=== PATIENT | female | born 1990 | race Caucasian/White ===

== ENCOUNTER 2016-10-05 11:54 | Emergency (ER) | payer OTHER ==
[2016-10-05 12:05] VITALS: BP 143/80; TEMP 97.3; O2SAT 100
--- NOTE | 2016-10-05 12:22 | ED.PDOC ---
History of Present Illness - General Chief Complaint: General Stated Complaint: flu like symp Time Seen by Provider: 10/05/16 12:17 Source: patient, RN notes reviewed, Vital Signs reviewed Exam Limitations: no limitations - History of Present Illness Initial Comments: stated had nasal congestion the last 2 days and this morning started having body aches feels having fever but temperature taken here afebrile. Timing/Duration: other - 2 days ago Improving Factors: nothing Worsening Factors: nothing Associated Symptoms: fever/chills, loss of appetite Allergies/Adverse Reactions: Allergies NO KNOWN ALLERGY Allergy (Verified 10/05/16 12:00) Home Medications: Ambulatory Orders Amoxicillin [Amoxil] 1,000 mg PO BID #30 cap 10/05/16 Oxymetazoline HCl [Afrin Nasal [place]] 1 spray NA BID PRN #1 spr 10/05/16 Phenylephrine-Chlorpheniramine [Cold Multi-Symptom Nightt 5-2-10-325 mg] 1 tab PO TID #30 tab 10/05/16 Review of Systems - Review of Systems Constitutional: States: see HPI EENTM: States: see HPI Respiratory: States: see HPI Cardiology: States: no symptoms reported Gastrointestinal/Abdominal: States: no symptoms reported Genitourinary: States: see HPI Musculoskeletal: States: no symptoms reported Skin: States: no symptoms reported Neurological: States: no symptoms reported Endocrine: States: no symptoms reported Past Medical History (General) - Patient Medical History Hx Seizures: No Hx Stroke: No Hx Dementia: No Hx Asthma: No Hx of COPD: No Hx Cardiac Disorders: No Hx Congestive Heart Failure: No Hx Pacemaker: No Hx Hypertension: Yes Hx Thyroid Disease: No Hx Diabetes: Yes Hx Gastroesophageal Reflux: No Hx Renal Disease: No Hx Cancer: No Hx of HIV: No Hx Hepatitis C: No Hx MRSA: No Surgical History: other - vaginal deliveries - Vaccination History Hx Tetanus, Diphtheria Vaccination: Yes Hx Influenza Vaccination: Yes Hx Pneumococcal Vaccination: No - Social History Hx Tobacco Use: Yes Hx Chewing Tobacco Use: No Hx Alcohol Use: No Hx Substance Use: No Hx Substance Use Treatment: No Hx Depression: Yes Hx Physical Abuse: No Hx Emotional Abuse: No Hx Suspected Abuse: No - Activities of Daily Living Patient Lives Alone: No - family - Female History Patient is a Female of Child Bearing Age (10 -59 yrs old): Yes Hx Last Menstrual Period: 06/07/16 Patient : No Family Medical History - Family History Mother Family History: Unknown Living Status: Unknown Hx Family Asthma: Yes - dad Hx Family;Other: Lupus, MS Physical Exam - Physical Exam General Appearance: Alert, Anxious, No apparent distress Eye Exam: bilateral normal Ears, Nose, Throat: hearing grossly normal, normal ENT inspection, sinus pain/ drainage, nasal congestion Neck: non-tender, full range of motion, supple Respiratory: chest non-tender, lungs clear, normal breath sounds, other - speaks in full sentences Cardiovascular/Chest: normal peripheral pulses, regular rate, rhythm, no edema, no gallop, no JVD, no murmur Gastrointestinal/Abdominal: normal bowel sounds, non tender, soft, no organomegaly Back Exam: normal inspection, no CVA tenderness, no vertebral tenderness Extremity: normal range of motion, non-tender, normal inspection Neurologic: alert, normal mood/affect, oriented x 3 Progress - Results/Orders Results/Orders: 10/05/16 12:01 STREP A SCREEN CULTURE Stat 10/05/16 12:28 Chest,1 View [RAD] Stat Laboratory Results Group A Strep Rapid Negative (NEGATIVE) 10/05/16 12:01 Flu swab-negative - EKG/XRAY/CT XRAY: no acute abnormality Departure - Departure Clinical Impression: Upper respiratory infection Qualifiers: Pharyngitis/tonsillitis etiology: other specified organisms Time of Disposition: 13:20 Disposition: Discharge to Home or Self Care Condition: Good Departure Forms: ED Discharge - Pt. Copy, Patient Portal Self Enrollment Instructions: DI for Viral Upper Respiratory Infection -- Adult Prescriptions: Oxymetazoline HCl [Afrin Nasal [place]] 1 spray NA BID PRN #1 spr PRN Reason: Nasal Congestion Amoxicillin [Amoxil] 1,000 mg PO BID #30 cap Phenylephrine-Chlorpheniramine [Cold Multi-Symptom Nightt 5-2-10-325 mg] 1 tab PO TID #30 tab Home Medications: Ambulatory Orders Amoxicillin [Amoxil] 1,000 mg PO BID #30 cap 10/05/16 Oxymetazoline HCl [Afrin Nasal [place]] 1 spray NA BID PRN #1 spr 10/05/16 Phenylephrine-Chlorpheniramine [Cold Multi-Symptom Nightt 5-2-10-325 mg] 1 tab PO TID #30 tab 10/05/16 Additional Instructions: Inrease oral fluid intake.EXCUSE FROM WORK 10/05-;RETURN TO WORK WITHOUT RESTRICTIONS 10/07/2016.
--- NOTE | 2016-10-05 13:18 | RAD ---
Study: Single Frontal View of the Chest. Indication:cough Comparison: June 07, 2016. Impression: Heart size normal. Questionable 5 mm pulmonary nodule projecting the lateral aspect of the right 7th intercostal space. This is likely artifactual. Short-term followup recommended. Otherwise, lungs clear. No acute osseous abnormality. Electronically signed by: Bhavesh French MD 10/05/2016 13:16
== END 2016-10-05 13:34 | disposition home or self-care (01) ==
LOC: ER 11:54
DX: J06.9 Acute upper respiratory infection, unspecified (principal); I10 Essential (primary) hypertension; E11.9 Type 2 diabetes mellitus without complications; F32.9 Major depressive disorder, single episode, unspecified; Z79.899 Other long term (current) drug therapy; Z87.891 Personal history of nicotine dependence

== ENCOUNTER 2016-10-11 19:51 | Emergency (ER) | payer OTHER ==
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
[2016-10-11] MEDS ORDERED: POTASSIUM CHLORIDE ELIXIR 20 MEQ/15 ML UD PO ONE (22:01)
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
[2016-10-11] MEDS ORDERED: ACETAMINOPHEN-CAFF-BUTALBITAL 1 EA TAB PO SCH (22:30)
[2016-10-11 22:55] VITALS: BP 118/77; TEMP 98.9; O2SAT 100
== END 2016-10-11 22:25 | disposition home or self-care (01) ==
LOC: ER 19:51
DX: M94.0 Chondrocostal junction syndrome [Tietze] (principal); E87.6 Hypokalemia; N30.90 Cystitis, unspecified without hematuria; I10 Essential (primary) hypertension; K21.9 Gastro-esophageal reflux disease without esophagitis; E11.9 Type 2 diabetes mellitus without complications; Z79.899 Other long term (current) drug therapy; V49.49XA Driver injured in collision with other motor vehicles in traffic accident, initial encounter; Y92.410 Unspecified street and highway as the place of occurrence of the external cause

== ENCOUNTER → 2016-11-06 | Outpatient (CLI) | payer OTHER | END | disposition home or self-care (01) | LOC: LAB.O 14:38 | PROVIDERS: ATTEND Obstetrics & Gynecology | DX: N92.1 Excessive and frequent menstruation with irregular cycle (principal) ==

== ENCOUNTER 2016-11-09 22:17 | Emergency (ER) | payer OTHER ==
--- NOTE | 2016-11-10 11:39 | RAD ---
EXAM DESCRIPTION: XR CHEST 2 VIEWS CLINICAL HISTORY: COUGH COMPARISON: October 11, 2016 TECHNIQUE: PA/lateral FINDINGS: There is no cardiac or pulmonary abnormality. The lungs are clear. There is no effusion. IMPRESSION: No acute findings on today's study. Electronically signed by: Cisco Deluca MD 11/10/2016 11:37
== END 2016-11-09 23:50 | disposition home or self-care (01) ==
LOC: ER 22:17
DX: R07.9 Chest pain, unspecified (principal); Z82.49 Family history of ischemic heart disease and other diseases of the circulatory system

== ENCOUNTER → 2016-11-20 | Outpatient (CLI) | payer OTHER | END | disposition home or self-care (01) | LOC: LAB.O 15:15 | PROVIDERS: ATTEND Obstetrics & Gynecology | DX: N92.6 Irregular menstruation, unspecified (principal) ==

== ENCOUNTER → 2016-11-22 | Outpatient (CLI) | payer OTHER | END | disposition home or self-care (01) | LOC: LAB.O 09:41 | PROVIDERS: ATTEND Obstetrics & Gynecology | DX: N92.6 Irregular menstruation, unspecified (principal) ==

== ENCOUNTER 2016-12-09 12:15 | Emergency (ER) | payer MEDICAID, OTHER ==
[2016-12-09 12:43] VITALS: TEMP 98
[2016-12-09] MEDS ORDERED: SODIUM CHLORIDE 0.9% 1000ML 1,000 ML IVS ONE (12:47)
--- NOTE | 2016-12-09 13:27 | ED.PDOC ---
History of Present Illness - General Chief Complaint: Diabetic Complaint Stated Complaint: irregular blood sugar Time Seen by Provider: 12/09/16 12:39 Source: patient, RN notes reviewed, Vital Signs reviewed Exam Limitations: no limitations - History of Present Illness Initial Comments: Reports that her blood sugar has been up and down for the past week. She gives a history of DM but is on no medication. She is also ~7 weeks . She has been eating lots of simple carbohydrates. Timing/Duration: 1 week Severity: moderate Improving Factors: nothing Worsening Factors: nothing Associated Symptoms: other - increased thirst and urination Allergies/Adverse Reactions: Allergies NO KNOWN ALLERGY Allergy (Verified 12/09/16 12:43) Home Medications: Ambulatory Orders Vit W/ Ferrous Fumara [] 1 tab PO DAILY 12/09/16 Review of Systems - Review of Systems Constitutional: States: no symptoms reported EENTM: States: no symptoms reported Respiratory: States: no symptoms reported Cardiology: States: no symptoms reported Gastrointestinal/Abdominal: States: no symptoms reported Musculoskeletal: States: no symptoms reported Skin: States: no symptoms reported Neurological: States: no symptoms reported Endocrine: States: increased thirst, increased urine Hematologic/Lymphatic: States: no symptoms reported Past Medical History (General) - Patient Medical History Hx Seizures: No Hx Stroke: No Hx Dementia: No Hx Asthma: No Hx of COPD: No Hx Cardiac Disorders: No Hx Congestive Heart Failure: No Hx Pacemaker: No Hx Hypertension: Yes Hx Thyroid Disease: No Hx Diabetes: Yes Hx Gastroesophageal Reflux: Yes Hx Renal Disease: No Hx Cancer: No Hx of HIV: No Hx Hepatitis C: No Hx MRSA: No Surgical History: other - Vaccination History Hx Tetanus, Diphtheria Vaccination: No Hx Influenza Vaccination: No Hx Pneumococcal Vaccination: No - Social History Hx Tobacco Use: No Hx Chewing Tobacco Use: No Hx Alcohol Use: No Hx Substance Use: No Hx Substance Use Treatment: No Hx Depression: Yes Hx Physical Abuse: No Hx Emotional Abuse: No Hx Suspected Abuse: No - Activities of Daily Living Hospice Agency (if applicable):: None - Female History Patient is a Female of Child Bearing Age (10 -59 yrs old): No Hx Last Menstrual Period: 06/07/16 Patient : Yes - Triage Comment ED Triage Comment: currently 7 weeks gestation Family Medical History - Family History Mother Family History: Unknown Living Status: Unknown Hx Family Asthma: Yes - dad Hx Family;Other: Lupus, MS Physical Exam - Physical Exam General Appearance: Alert, Comfortable, No apparent distress, Well Developed, Well Groomed, Well Nourished Ears, Nose, Throat: other - Dry mucous membranes Neck: non-tender, full range of motion, supple, normal inspection Respiratory: chest non-tender, lungs clear, normal breath sounds, no respiratory distress, no accessory muscle use Cardiovascular/Chest: normal peripheral pulses, regular rate, rhythm, no edema, no gallop, no JVD, no murmur Back Exam: normal inspection, no CVA tenderness, no vertebral tenderness Extremity: normal range of motion, non-tender, normal inspection, no pedal edema Neurologic: no motor/sensory deficits, alert, normal mood/affect, oriented x 3 Skin Exam: normal color, warm/dry Lymphatic: no adenopathy Progress - Progress Progress: 12/09/16 13:41 500cc of NS in - reports she is feeling better. Advised on normal labs. - Results/Orders Results/Orders: Laboratory Tests 12/09/16 12:57 WBC 8.2 RBC 4.06 L Hgb 12.1 Hct 35.6 L MCV 87.5 MCH 29.8 MCHC 34.0 RDW 12.8 Plt Count 167 MPV 8.8 Absolute Neuts (auto) 5.20 Absolute Lymphs (auto) 2.10 Absolute Monos (auto) 0.70 Absolute Eos (auto) 0.10 Absolute Basos (auto) 0.00 Neutrophils % 63.5 Lymphocytes % 26.0 Monocytes % 8.3 Eosinophils % 1.7 Basophils % 0.5 Sodium 135 Potassium 3.9 Chloride 106 Carbon Dioxide 22 Anion Gap 10.9 L BUN 7 Creatinine 0.46 L BUN/Creatinine Ratio 15.2 Random Glucose 84 Serum Osmolality 267.3 L Calcium 8.9 Total Bilirubin 0.4 AST 14 ALT 15 Alkaline Phosphatase 58 Serum Total Protein 6.9 Albumin 3.7 Globulin 3.2 Albumin/Globulin Ratio 1.2 Departure - Departure Clinical Impression: Diabetes mellitus, Hypoglycemia Time of Disposition: 14:34 Disposition: Discharge to Home or Self Care Condition: Good Departure Forms: ED Discharge - Pt. Copy, Patient Portal Self Enrollment Diet: diabetic diet Activity: increase activity as tolerated Referrals: KAMILA MICHELE [Primary Care Provider] - 1-5 Days Home Medications: Ambulatory Orders Vit W/ Ferrous Fumara [] 1 tab PO DAILY 12/09/16
[2016-12-09 15:20] VITALS: BP 126/68; O2SAT 100
== END 2016-12-09 15:10 | disposition home or self-care (01) ==
LOC: ER 12:15
DX: O24.111 Pre-existing type 2 diabetes mellitus, in pregnancy, first trimester (principal); E11.649 Type 2 diabetes mellitus with hypoglycemia without coma; O16.1 Unspecified maternal hypertension, first trimester; O99.611 Diseases of the digestive system complicating pregnancy, first trimester; K21.9 Gastro-esophageal reflux disease without esophagitis; Z3A.01 Less than 8 weeks gestation of pregnancy
CPT/HCPCS: 36415; 80053; 85025; J7030

== ENCOUNTER → 2016-12-12 | Outpatient (CLI) | payer OTHER | END | disposition home or self-care (01) | LOC: LAB.O 15:52 | PROVIDERS: ATTEND Obstetrics & Gynecology | DX: E11.9 Type 2 diabetes mellitus without complications (principal) ==

== ENCOUNTER 2016-12-27 10:18 | Emergency (ER) | payer OTHER ==
[2016-12-27 10:37] VITALS: TEMP 97.4
[2016-12-27] MEDS ORDERED: ONDANSETRON INJ 4 MG/2 ML VIAL IV ONE ×2 (10:41→11:49)
[2016-12-27] MEDS ORDERED: TETANUS,DIPHTHERIA,PERTUSSIS 1 EA SYG IM ONE (10:41)
[2016-12-27] MEDS ORDERED: SODIUM CHLORIDE 0.9% 1000ML 1,000 ML IVS ONE (10:41)
--- NOTE | 2016-12-27 10:44 | ED.PDOC ---
History of Present Illness - General Chief Complaint: Fever Stated Complaint: fever and vomiting Time Seen by Provider: 12/27/16 10:23 Source: patient, RN notes reviewed, Vital Signs reviewed Exam Limitations: no limitations - History of Present Illness Initial Comments: Patient comes in with 3 days of N/V/D with fever to 102. Recently treated for a UTI. She is 3 months . She has tried vginesh, Phenergan and Zofran at home without relief. No abd pain. Timing/Duration: constant - 3 days Severity: moderate Improving Factors: nothing Worsening Factors: nothing Associated Symptoms: fever/chills, malaise, nausea/vomiting Allergies/Adverse Reactions: Allergies NO KNOWN ALLERGY Allergy (Verified 12/27/16 10:37) Home Medications: Ambulatory Orders Vit W/ Ferrous Fumara [] 1 tab PO DAILY 12/09/16 Pantoprazole Sodium [Protonix] 40 mg PO ACBK #30 tab 12/27/16 Review of Systems - Review of Systems Constitutional: States: chills, fever, malaise EENTM: States: no symptoms reported Respiratory: States: no symptoms reported Cardiology: States: no symptoms reported Gastrointestinal/Abdominal: States: diarrhea, nausea, vomiting. Denies: abdominal pain Genitourinary: Denies: dysuria, frequency, hematuria Musculoskeletal: States: no symptoms reported Skin: States: no symptoms reported Neurological: States: no symptoms reported Endocrine: States: no symptoms reported Hematologic/Lymphatic: States: no symptoms reported Past Medical History (General) - Patient Medical History Hx Seizures: No Hx Stroke: No Hx Dementia: No Hx Asthma: No Hx of COPD: No Hx Cardiac Disorders: No Hx Congestive Heart Failure: No Hx Pacemaker: No Hx Hypertension: Yes Hx Thyroid Disease: No Hx Diabetes: Yes Hx Gastroesophageal Reflux: Yes Hx Renal Disease: No Hx Cancer: No Hx of HIV: No Hx Hepatitis C: No Hx MRSA: No - Vaccination History Hx Tetanus, Diphtheria Vaccination: No Hx Influenza Vaccination: No Hx Pneumococcal Vaccination: No - Social History Hx Tobacco Use: No Hx Chewing Tobacco Use: No Hx Alcohol Use: No Hx Substance Use: No Hx Substance Use Treatment: No Hx Depression: Yes Hx Physical Abuse: No Hx Emotional Abuse: No Hx Suspected Abuse: No - Activities of Daily Living Hospice Agency (if applicable):: None - Female History Patient is a Female of Child Bearing Age (10 -59 yrs old): Yes Hx Last Menstrual Period: 06/07/16 Patient : Yes - Triage Comment ED Triage Comment: 10 weeks gestation Family Medical History - Family History Mother Family History: Unknown Living Status: Unknown Hx Family Asthma: Yes - dad Hx Family;Other: Lupus, MS Physical Exam - Physical Exam General Appearance: Alert, Comfortable, No apparent distress, Well Developed, Well Groomed, Well Nourished Ears, Nose, Throat: other - dry mucous membranes Neck: full range of motion, supple, normal inspection Respiratory: chest non-tender, lungs clear, normal breath sounds, no respiratory distress, no accessory muscle use Cardiovascular/Chest: regular rate, rhythm, no edema, no gallop, no JVD, no murmur Gastrointestinal/Abdominal: normal bowel sounds, non tender, soft, no organomegaly, no pulsatile mass Back Exam: normal inspection, no CVA tenderness Extremity: normal range of motion, non-tender, normal inspection, no pedal edema Neurologic: no motor/sensory deficits, alert, normal mood/affect, oriented x 3 Skin Exam: normal color, warm/dry Progress - Progress Progress: 12/27/16 12:28 She is feeling better after the Protonix. Discussed nl lab results. Will finish liter of NS and d/c home with Rx for Protonix. She has Zofran at home. Departure - Departure Clinical Impression: Gastroenteritis GERD (gastroesophageal reflux disease) Qualifiers: Esophagitis presence: without esophagitis Qualifier Code: (K21.9) Gastro- esophageal reflux disease without esophagitis Time of Disposition: 12:29 Disposition: Discharge to Home or Self Care Condition: Good Departure Forms: ED Discharge - Pt. Copy, Patient Portal Self Enrollment Instructions: DI for Gastroesophageal Reflux Disease (GERD), DI for Viral Gastroenteritis -- Adult Diet: resume usual diet Activity: increase activity as tolerated Prescriptions: Pantoprazole Sodium [Protonix] 40 mg PO ACBK #30 tab Home Medications: Ambulatory Orders Vit W/ Ferrous Fumara [] 1 tab PO DAILY 12/09/16 Pantoprazole Sodium [Protonix] 40 mg PO ACBK #30 tab 12/27/16
[2016-12-27] MEDS ORDERED: PANTOPRAZOLE SODIUM IV 40 MG VIAL IV ONE (12:02)
[2016-12-27 12:37] VITALS: BP 98/58; O2SAT 100
== END 2016-12-27 12:37 | disposition home or self-care (01) ==
LOC: ER 10:18
DX: O99.611 Diseases of the digestive system complicating pregnancy, first trimester (principal); K52.9 Noninfective gastroenteritis and colitis, unspecified; K21.9 Gastro-esophageal reflux disease without esophagitis; Z3A.10 10 weeks gestation of pregnancy; O24.311 Unspecified pre-existing diabetes mellitus in pregnancy, first trimester; E11.9 Type 2 diabetes mellitus without complications; O10.911 Unspecified pre-existing hypertension complicating pregnancy, first trimester; O99.341 Other mental disorders complicating pregnancy, first trimester
CPT/HCPCS: 36415; 80053; 81001; 85025; J2405; J7030

== ENCOUNTER 2016-12-29 20:49 | Emergency (ER) | payer OTHER ==
--- NOTE | 2016-12-29 21:49 | ED.PDOC ---
History of Present Illness - General Chief Complaint: Abdominal Pain Stated Complaint: 11 weeks with LLQ pain radiating to back Time Seen by Provider: 12/29/16 21:37 Information Source: patient, RN notes reviewed, Vital Signs reviewed Exam Limitations: no limitations - History of Present Illness Initial Comments: Patient reports LLQ pain that goes into her low back and pelvis since yesterday afternoon. The pain is both crampy and stabbing and waxes and wanes but never completely goes away. She was seen here 2 days ago for vomiting and diarrhea. She reports she did have 3 ovarian cysts on the L at her OB sonogram several weeks ago. She is currently 11 weeks . Abdominal Pain Onset Location: LLQ Pain Radiation: back Quality: severe, cramping, stabbing Timing/Duration: 24 hours Improving Factors: nothing Worsening Factors: nothing Associated Symptoms: back pain Review of Systems - Review of Systems Constitutional: States: no symptoms reported. Denies: chills, fever Respiratory: States: no symptoms reported. Denies: short of breath Cardiology: States: no symptoms reported. Denies: chest pain Gastrointestinal/Abdominal: States: see HPI Genitourinary: States: no symptoms reported. Denies: dysuria, frequency, hematuria Musculoskeletal: States: back pain Skin: States: no symptoms reported Neurological: States: no symptoms reported. Denies: headache Past Medical History (General) - Patient Medical History Hx Seizures: No Hx Stroke: No Hx Dementia: No Hx Asthma: No Hx of COPD: No Hx Cardiac Disorders: No Hx Congestive Heart Failure: No Hx Pacemaker: No Hx Hypertension: Yes Hx Thyroid Disease: No Hx Diabetes: Yes Hx Gastroesophageal Reflux: Yes Hx Renal Disease: No Hx Cancer: No Hx of HIV: No Hx Hepatitis C: No Hx MRSA: No - Vaccination History Hx Tetanus, Diphtheria Vaccination: No Hx Influenza Vaccination: No Hx Pneumococcal Vaccination: No - Social History Hx Tobacco Use: No Hx Chewing Tobacco Use: No Hx Alcohol Use: No Hx Substance Use: No Hx Substance Use Treatment: No Hx Depression: Yes Hx Physical Abuse: No Hx Emotional Abuse: No Hx Suspected Abuse: No - Female History Hx Last Menstrual Period: 06/07/16 Patient : Yes Family Medical History - Family History Mother Family History: Unknown Living Status: Unknown Hx Family Asthma: Yes - dad Hx Family;Other: Lupus, MS Physical Exam - Physical Exam General Appearance: Alert, Comfortable, No apparent distress, Well Developed, Well Groomed, Well Hydrated, Well Nourished Neck: non-tender, supple, normal inspection Respiratory: chest non-tender, lungs clear, normal breath sounds, no respiratory distress, no accessory muscle use Cardiovascular/Chest: regular rate, rhythm, no edema, no gallop, no JVD, no murmur Gastrointestinal/Abdominal: normal bowel sounds, soft, no organomegaly, no pulsatile mass, tenderness - LLQ Extremity: normal range of motion, non-tender, normal inspection Neurologic: no motor/sensory deficits, alert, normal mood/affect, oriented x 3 Skin Exam: normal color, warm/dry Comments: Vital Signs - 24 hr 12/29/16 21:30 Temperature 97.9 F Pulse Rate [ 79 left] Respiratory 20 Rate Blood Pressure 118/76 [left] O2 Sat by Pulse 99 Oximetry Progress - Progress Progress: 12/29/16 22:25 Discussed that labs show she has a urinary tract infection. She feels there must be something else going on to be hurting so much. Discussed that I don't have the capability of doing an ultrasound at this time. Offered transfer to [place] or [place] but she does not want to do that. Will give antibiotic and Tylenol #3. 12/29/16 23:09 Patient is feeling much better after medications. Will d/c home with scripts for both. - Results/Orders Results/Orders: Laboratory Tests 12/29/16 21:45 Urine Color Yellow Urine Appearance Sl cloudy Urine pH 7.0 Ur Specific [place] 1.015 Urine Protein 30 Urine Glucose (UA) Negative Urine Ketones Negative Urine Blood Moderate H Urine Nitrite Positive H Urine Bilirubin Negative Urine Urobilinogen 0.2 Ur Leukocyte Esterase Moderate H Urine RBC 5-10 H Urine WBC >50 H Ur Epithelial Cells 1-3 Urine Bacteria 3+ H Urine Mucus Trace Departure - Departure Clinical Impression: Cystitis Time of Disposition: 23:09 Disposition: Discharge to Home or Self Care Condition: Good Instructions: DI for Urinary Tract Infection (UTI) Diet: resume usual diet Activity: increase activity as tolerated Referrals: KAMILA MICHELE [Primary Care Provider] - 1-5 Days Prescriptions: Acetaminophen W/ Codeine [Tylenol W/ CODEINE #3] 1 ea PO Q6HRS PRN #15 PRN Reason: Moderate To Severe Pain Nitrofurantoin Monohydrate Mac [Macrobid] 100 mg PO BID #20 cap Home Medications: Ambulatory Orders Vit W/ Ferrous Fumara [] 1 tab PO DAILY 12/09/16 Pantoprazole Sodium [Protonix] 40 mg PO ACBK #30 tab 12/27/16 Acetaminophen W/ Codeine [Tylenol W/ CODEINE #3] 1 ea PO Q6HRS PRN #15 Nitrofurantoin Monohydrate Mac [Macrobid] 100 mg PO BID #20 cap 12/29/16
[2016-12-29 21:55] VITALS: BP 118/76; TEMP 97.9; O2SAT 99
[2016-12-29] MEDS ORDERED: ACETAMINOPHEN W/COD #3 TAB 1 EA TAB PO ONE (22:27)
[2016-12-29] MEDS ORDERED: NITROFURANTOIN MONOHYDRATE MAC 100 MG CAP PO ONE (22:27)
== END 2016-12-29 23:23 | disposition home or self-care (01) ==
LOC: ER 20:49
DX: O23.11 Infections of bladder in pregnancy, first trimester (principal); O34.81 Maternal care for other abnormalities of pelvic organs, first trimester; N83.202 Unspecified ovarian cyst, left side; O99.611 Diseases of the digestive system complicating pregnancy, first trimester; K21.9 Gastro-esophageal reflux disease without esophagitis; Z3A.11 11 weeks gestation of pregnancy

== ENCOUNTER 2017-03-02 14:07 | Emergency (ER) | payer OTHER ==
--- NOTE | 2017-03-02 14:22 | ED.PDOC ---
History of Present Illness - General Chief Complaint: Cardiovascular Problem Stated Complaint: chest pain Time Seen by Provider: 03/02/17 14:22 Source: patient, RN notes reviewed, Vital Signs reviewed Exam Limitations: no limitations Additional Information: Nara Carpenter 26 y/o female stated that she had been having sharp left sided chest pains intermittent for the last 3 days but at about 0630h today woke her up with chest heaviness no diaphoresis non radiating no nausea/vomiting but with sob.She stated that she is pregnat with her 4th child at 19 weeks ega.Also had cardiac work up with cleat layer stress echo but no acute findings were noted-e.g.MVP.Has regular care with Dr. Michele Ob-advertising photographer in . - History of Present Illness Timing/Duration: other - 3 days Severity: moderate Location: other - left side chest Activities at Onset: rest Prior Chest Pain/Cardiac Workup: echocardiography, stress test Improving Factors: nothing Worsening Factors: nothing Nitro Today/Relief: no nitro taken today Aspirin Treatment Today: no aspirin today Associated Symptoms: shortness of breath Allergies/Adverse Reactions: Allergies bleach Allergy (Uncoded 12/29/16 21:56) Home Medications: Ambulatory Orders Vit W/ Ferrous Fumara [] 1 tab PO DAILY 12/09/16 Pantoprazole Tablet [Protonix] 40 mg PO ACBK #30 tab 12/27/16 Acetaminophen W/ Codeine [Tylenol W/ CODEINE #3] 1 ea PO Q6HRS PRN #15 Nitrofurantoin Monohydrate Mac [Macrobid] 100 mg PO BID #20 cap 12/29/16 Review of Systems - Review of Systems Constitutional: States: no symptoms reported EENTM: States: no symptoms reported Respiratory: States: no symptoms reported Cardiology: States: see HPI Gastrointestinal/Abdominal: States: no symptoms reported Genitourinary: States: no symptoms reported Musculoskeletal: States: no symptoms reported Skin: States: no symptoms reported Neurological: States: no symptoms reported Endocrine: States: no symptoms reported Hematologic/Lymphatic: States: no symptoms reported Past Medical History (General) - Patient Medical History Hx Seizures: No Hx Stroke: No Hx Dementia: No Hx Asthma: No Hx of COPD: No Hx Cardiac Disorders: No Hx Congestive Heart Failure: No Hx Pacemaker: No Hx Hypertension: Yes Hx Thyroid Disease: No Hx Diabetes: Yes Hx Gastroesophageal Reflux: Yes Hx Renal Disease: No Hx Cancer: No Hx of HIV: No Hx Hepatitis C: No Hx MRSA: No Surgical History: other - breast reduction,ears,nose,eyes - Vaccination History Hx Tetanus, Diphtheria Vaccination: No Hx Influenza Vaccination: No Hx Pneumococcal Vaccination: No - Social History Hx Tobacco Use: No Hx Chewing Tobacco Use: No Hx Alcohol Use: No Hx Substance Use: No Hx Substance Use Treatment: No Hx Depression: Yes Hx Physical Abuse: No Hx Emotional Abuse: No Hx Suspected Abuse: No - Activities of Daily Living Patient Lives Alone: No - family - Female History Hx Last Menstrual Period: 06/07/16 Patient : Yes Hx Gestational Age: 11 Family Medical History - Family History Mother Family History: Unknown Living Status: Unknown Hx Family Asthma: Yes - dad Hx Family Hypertension: Yes - dad Hx Cardiac Disease: Yes - dad Hx Family Diabetes: Yes - dad Hx Family Cancer: Yes - breast-mom Hx Family;Other: Lupus, MS Physical Exam - Physical Exam General Appearance: Alert, Comfortable, No apparent distress Eyes, Ears, Nose, Throat Exam: PERRL/EOMI, normal ENT inspection, TMs normal, pharynx normal Neck: non-tender, full range of motion, supple, normal inspection Respiratory: chest non-tender, lungs clear, normal breath sounds, no respiratory distress Cardiovascular/Chest: normal peripheral pulses, regular rate, rhythm, no edema, no gallop, no JVD, no murmur Peripheral Pulses: radial,right: 2+, radial,left: 2+ Gastrointestinal/Abdominal: normal bowel sounds, non tender, soft, no organomegaly, other - gravid uterus;fht-160's Extremity: normal range of motion, non-tender, normal inspection, no pedal edema , no calf tenderness Neurologic: no motor/sensory deficits, alert, normal mood/affect, oriented x 3 Skin Exam: normal color, warm/dry Lymphatic: no adenopathy Progress - Results/Orders Results/Orders: Vital Signs - 8 hr 03/02/17 14:09 Temperature 99.9 F H Pulse Rate [ 75 apical] Respiratory 16 Rate Blood Pressure 134/80 [left brachial] O2 Sat by Pulse 97 Oximetry Laboratory Results WBC 10.0 K/mm3 (4.8-10.8) 03/02/17 14:31 RBC 3.79 M/mm3 (4.20-5.40) L 03/02/17 14:31 Hgb 11.6 gm/dL (12.0-16.0) L 03/02/17 14:31 Hct 33.9 % (36.0-47.0) L 03/02/17 14:31 MCV 89.4 fl (81.0-99.0) 03/02/17 14:31 MCH 30.6 pg (27.0-31.0) 03/02/17 14:31 MCHC 34.1 g/dL (33.0-37.0) 03/02/17 14:31 RDW 13.5 % (11.5-14.5) 03/02/17 14:31 Plt Count 163 K/mm3 (130-400) 03/02/17 14:31 MPV 9.0 fl (7.40-10.4) 03/02/17 14:31 Absolute Neuts (auto) 7.30 K/uL (1.8-6.8) H 03/02/17 14:31 Absolute Lymphs (auto) 2.00 K/uL (1.0-3.4) 03/02/17 14:31 Absolute Monos (auto) 0.60 K/uL (0.2-0.8) 03/02/17 14:31 Absolute Eos (auto) 0.00 K/uL (0.0-0.4) 03/02/17 14:31 Absolute Basos (auto) 0.00 K/uL (0.0-0.1) 03/02/17 14:31 Neutrophils % 73.1 % (42.0-78.0) 03/02/17 14:31 Lymphocytes % 20.3 % (20.0-50.0) 03/02/17 14:31 Monocytes % 5.9 % (2.0-9.0) 03/02/17 14:31 Eosinophils % 0.4 % (1.0-5.0) L 03/02/17 14:31 Basophils % 0.3 % (0.0-2.0) 03/02/17 14:31 PT 10.5 SECONDS (9.4-12.5) 03/02/17 14:31 INR 0.930 03/02/17 14:31 PTT (SP) 27.4 SECONDS (25.1-36.5) 03/02/17 14:31 D-Dimer, Quantitative 315 ng/mL (0-230) H* 03/02/17 14:31 Sodium 137 mmol/L (135-145) 03/02/17 14:31 Potassium 3.5 mmol/L (3.6-5.0) L 03/02/17 14:31 Chloride 105 mmol/L (101-111) 03/02/17 14:31 Carbon Dioxide 24 mmol/L (21-31) 03/02/17 14:31 Anion Gap 11.5 (12-18) L 03/02/17 14:31 BUN 9 mg/dL (7-18) 03/02/17 14:31 Creatinine 0.51 mg/dL (0.6-1.3) L 03/02/17 14:31 BUN/Creatinine Ratio 17.6 (10-20) 03/02/17 14:31 Random Glucose 82 mg/dL (70-105) 03/02/17 14:31 Serum Osmolality 271.6 mOsm/L (275-295) L 03/02/17 14:31 Calcium 8.6 mg/dL (8.4-10.2) 03/02/17 14:31 Magnesium 1.9 mg/dL (1.8-2.5) 03/02/17 14:31 Total Bilirubin 0.3 mg/dL (0.2-1.0) 03/02/17 14:31 Direct Bilirubin < 0.1 mg/dL (0-0.2) 03/02/17 14:31 Indirect Bilirubin 0.2 mg/dL (0.2-0.8) 03/02/17 14:31 AST 14 IU/L (10-42) 03/02/17 14:31 ALT 11 IU/L (10-60) 03/02/17 14:31 Alkaline Phosphatase 48 IU/L (42-121) 03/02/17 14:31 Creatine Kinase 44 IU/L (26-140) 03/02/17 14:31 CK-MB (CK-2) 0.8 ng/mL (0.0-4.4) 03/02/17 14:31 CK-MB (CK-2) % Not Reportable 03/02/17 14:31 Troponin I < 0.02 ng/mL (0.01-0.05) 03/02/17 14:31 Serum Total Protein 6.5 gm/dL (6.4-8.2) 03/02/17 14:31 Albumin 3.3 g/dl (3.2-5.5) 03/02/17 14:31 Urine Color Yellow (Yellow) 03/02/17 14:52 Urine Appearance Clear (Clear) 03/02/17 14:52 Urine pH 6.0 (4.5-7.8) 03/02/17 14:52 Ur Specific [place] 1.020 (1.005-1.030) 03/02/17 14:52 Urine Protein Negative mg/dL 03/02/17 14:52 Urine Glucose (UA) Negative mg/dL (Negative) 03/02/17 14:52 Urine Ketones Negative mg/dL (NEGATIVE) 03/02/17 14:52 Urine Blood Negative (Negative) 03/02/17 14:52 Urine Nitrite Negative 03/02/17 14:52 Urine Bilirubin Negative (NEGATIVE) 03/02/17 14:52 Urine Urobilinogen 0.2 mg/dL (0.2-1.0) 03/02/17 14:52 Ur Leukocyte Esterase Trace (Negative) H 03/02/17 14:52 Urine RBC 0 /hpf 03/02/17 14:52 Urine WBC 1-3 /hpf 03/02/17 14:52 Ur Epithelial Cells 3-5 /hpf 03/02/17 14:52 Urine Bacteria 0 03/02/17 14:52 Urine Mucus Moderate 03/02/17 14:52 Urine Opiates Screen Negative ng/mL (2000) 03/02/17 14:52 Urine Barbiturates Negative ng/mL (200) 03/02/17 14:52 Ur Phencyclidine Scrn Negative ng/mL (25) 03/02/17 14:52 U Amphetamin/Meth Scrn Negative ng/mL (1000) 03/02/17 14:52 U Benzodiazepines Scrn Negative ng/mL (200) 03/02/17 14:52 U Cocaine Metab Screen Negative ng/mL (300) 03/02/17 14:52 U Cannabinoids Screen Negative ng/mL (50) 03/02/17 14:52 1736 Presently mostly discomfort stable vital signs - EKG/XRAY/CT EKG: Sinus, no ST T wave changes - heart rate -66 XRAY: chest - no acute abnormalities noted/radiologist Departure - Departure Clinical Impression: Chest pain Qualifiers: Chest pain type: unspecified Qualified Code(s): R07.9 - Chest pain, unspecified Time of Disposition: 17:35 Disposition: Discharge to Home or Self Care Condition: Good Referrals: KAMILA MICHELE [Primary Care Provider] - 1-2 Weeks Home Medications: Ambulatory Orders Vit W/ Ferrous Fumara [] 1 tab PO DAILY 12/09/16 Pantoprazole Tablet [Protonix] 40 mg PO ACBK #30 tab 12/27/16 Acetaminophen W/ Codeine [Tylenol W/ CODEINE #3] 1 ea PO Q6HRS PRN #15 Nitrofurantoin Monohydrate Mac [Macrobid] 100 mg PO BID #20 cap 12/29/16 Additional Instructions: RETURN TO EMERGENCY ROOM NEEDED;NEED TO CALL UP DR LOZOYA OFFICE 2016 ;Continue with current medications
[2017-03-02 14:39] VITALS: TEMP 99.9; O2SAT 97
--- NOTE | 2017-03-02 14:58 | RAD ---
EXAM DESCRIPTION: Chest,2 Views CLINICAL HISTORY: 26 years Female, pain IMPRESSION: 2 views of the chest are compared to the prior from November 09, 2016. Lungs are clear. No pleural effusion or pneumothorax. Size is unremarkable. Electronically signed by: Cisco Deluca MD 03/02/2017 2:58 PM CDT
[2017-03-02 18:13] VITALS: BP 127/69
== END 2017-03-02 17:50 | disposition home or self-care (01) ==
LOC: ER 14:07
DX: O26.892 Other specified pregnancy related conditions, second trimester (principal); R07.9 Chest pain, unspecified; O16.2 Unspecified maternal hypertension, second trimester; O24.912 Unspecified diabetes mellitus in pregnancy, second trimester; O99.612 Diseases of the digestive system complicating pregnancy, second trimester; K21.9 Gastro-esophageal reflux disease without esophagitis; O99.342 Other mental disorders complicating pregnancy, second trimester; F32.9 Major depressive disorder, single episode, unspecified; Z3A.19 19 weeks gestation of pregnancy; Z91.048 Other nonmedicinal substance allergy status

== ENCOUNTER 2017-06-26 07:05 | Emergency (ER) | payer OTHER ==
[2017-06-26] MEDS ORDERED: SODIUM CHLORIDE 0.9% (FLUSH) 10 ML SYG IV PRN (07:25)
[2017-06-26] MEDS ORDERED: MORPHINE SULFATE INJ 10 MG/ML VIAL IV ONE (07:52)
--- NOTE | 2017-06-26 08:01 | ED.PDOC ---
History of Present Illness - General Chief Complaint: General Stated Complaint: Head pressure, chest pressure Time Seen by Provider: 06/26/17 07:22 Source: patient Exam Limitations: no limitations - History of Present Illness Initial Comments: CHEST PRESSURE X D DAYS, WORSE THIS AM. QUALITY: SHARP PRESSURE. LOCATION: STERNUM AND RIBS BL INFERIOR TO BREASTS; WORSE WITH A DEEP BREATH. SHE SAYS IT FEELS LIKE A PULLED MUSCLE IN HER RIBS. INTERMITTENT. DURATION APPROX 2 MIN THEN IT DECREASES THEN RETURNS. PT SAW DR. GORMAN, [place], PT THINKS FOR H/O CP AND RBBB. DENIES RECENT URI. NOTE: IS 36 WKS . PT DENIES ANY ABD PAIN, PRESSURE, VAGINAL BLEEDING, OR ABNORMALITIES THAT COULD INDICATE GOING INTO PRE-TERM LABOR OR OTHER -RELATED ISSUES. THOUGH FOR COMPLETENESS, WE WILL DOPPLER FHT. SHE HAS APPT IN 2 D WITH HER OB. AGAIN, PT HAS NO OB COMPLAINTS ON THIS ER VISIT. Severity: moderate Improving Factors: nothing Worsening Factors: other - DEEP BREATH Allergies/Adverse Reactions: Allergies bleach Adverse Reaction (Uncoded 06/26/17 07:21) Cough Home Medications: Ambulatory Orders Vit W/ Ferrous Fumara [] 1 tab PO DAILY 12/09/16 Ascorbic Acid [Vitamin C] 1,000 mg PO DAILY 06/26/17 Cyanocobalamin [Vitamin B-12] 1,000 mcg PO DAILY 06/26/17 Review of Systems - Review of Systems Constitutional: Denies: chills, diaphoresis, fever EENTM: Denies: ear pain, nose congestion Respiratory: States: other - PAIN WITH DEEP INSPIRATION. . Denies: cough, short of breath, wheezing Cardiology: States: see HPI. Denies: edema, palpitations, syncope Gastrointestinal/Abdominal: States: no symptoms reported. Denies: abdominal pain, nausea, vomiting Genitourinary: Denies: discharge, dysuria, frequency, hematuria, pain Musculoskeletal: States: other - JUST THE NORMAL LBP OF . Skin: States: no symptoms reported Neurological: States: no symptoms reported Endocrine: States: no symptoms reported Hematologic/Lymphatic: States: no symptoms reported All other Systems: Reviewed and Negative Past Medical History (General) - Patient Medical History Hx Seizures: No Hx Stroke: No Hx Dementia: No Hx Asthma: No Hx of COPD: No Hx Cardiac Disorders: No Hx Congestive Heart Failure: No Hx Pacemaker: No Hx Hypertension: Yes Hx Thyroid Disease: No Hx Diabetes: No Hx Gastroesophageal Reflux: Yes Hx Renal Disease: No Hx Cancer: No Hx of HIV: No Hx Hepatitis C: No Hx MRSA: No Surgical History: other - Vaccination History Hx Tetanus, Diphtheria Vaccination: No Hx Influenza Vaccination: Yes - 2016 Hx Pneumococcal Vaccination: No - Social History Hx Tobacco Use: Yes - 2014 Hx Chewing Tobacco Use: No Hx Alcohol Use: No Hx Substance Use: No Hx Substance Use Treatment: No Hx Depression: Yes Hx Physical Abuse: No Hx Emotional Abuse: No Hx Suspected Abuse: No - Female History Patient is a Female of Child Bearing Age (10 -59 yrs old): Yes Hx Last Menstrual Period: 06/07/16 Patient : Yes Hx Gestational Age: 11 Family Medical History - Family History Mother Family History: Unknown Living Status: Still Living Hx Family Asthma: Yes - dad Hx Family Hypertension: Yes - Mother, Father Hx Cardiac Disease: Yes - Father Hx Family Diabetes: Yes - Father Hx Family Cancer: Yes - breast-mom Hx Family;Other: Lupus, MS Physical Exam - Physical Exam General Appearance: Alert, Well Developed, Well Hydrated, Well Nourished Eye Exam: bilateral normal Ears, Nose, Throat: normal ENT inspection, normal pharynx Neck: full range of motion, supple Respiratory: chest non-tender, lungs clear, normal breath sounds, no respiratory distress, no accessory muscle use, other - CHEST WALL NTTP. Cardiovascular/Chest: normal peripheral pulses, regular rate, rhythm, no edema, no gallop, no JVD, no murmur Peripheral Pulses: radial,right: 2+, radial,left: 2+ Gastrointestinal/Abdominal: normal bowel sounds, non tender, soft, no pulsatile mass, other - GRAVID Back Exam: no CVA tenderness, no vertebral tenderness Extremity: normal range of motion, normal inspection Neurologic: no motor/sensory deficits, alert, normal mood/affect Skin Exam: normal color, warm/dry Lymphatic: no adenopathy Progress - Progress Progress: 06/26/17 08:09 FHT 135 06/26/17 08:43 CXR NEG. EKG NSR. CBC AND CMP W/ NL VARIATIONS OF . CP W/U NEG. SHE HAS HAD CP FOR 2 DAYS, THUS SERIAL TROP OVER 6 HRS IS NOT INDICATED. SAFE FOR DC TO HOME. Departure - Departure Clinical Impression: Atypical chest pain, Pleurisy, Disposition: Discharge to Home or Self Care Condition: Good Departure Forms: ED Discharge - Pt. Copy, Patient Portal Self Enrollment Instructions: DI for Pleurisy Diet: resume usual diet Activity: increase activity as tolerated Referrals: KAMILA MICHELE [Primary Care Provider] - 1-2 Weeks Home Medications: Ambulatory Orders Vit W/ Ferrous Fumara [] 1 tab PO DAILY 12/09/16 Ascorbic Acid [Vitamin C] 1,000 mg PO DAILY 06/26/17 Cyanocobalamin [Vitamin B-12] 1,000 mcg PO DAILY 06/26/17 Additional Instructions: Your heart and lungs are okay and you did not have a heart attack. Please keep appt with your OB this and cardiology for your routine follow-up.
--- NOTE | 2017-06-26 08:28 | RAD ---
EXAM DESCRIPTION: Chest,1 View CLINICAL HISTORY: L-sided chest pain COMPARISON: March 02, 2017 IMPRESSION: Single AP portable upright view of the chest shows cardiac silhouette and pulmonary vasculature to be within normal limits. Lungs are normally aerated and clear. No obvious pleural effusion or pneumothorax is seen. Electronically signed by: Jagdeep Gunter MD 06/26/2017 8:27 AM CDT
[2017-06-26 09:07] VITALS: BP 114/67; TEMP 98.4; O2SAT 98
== END 2017-06-26 09:05 | disposition home or self-care (01) ==
LOC: ER 07:05
DX: O99.513 Diseases of the respiratory system complicating pregnancy, third trimester (principal); R09.1 Pleurisy; R07.9 Chest pain, unspecified; O16.3 Unspecified maternal hypertension, third trimester; O99.613 Diseases of the digestive system complicating pregnancy, third trimester; K21.9 Gastro-esophageal reflux disease without esophagitis; Z3A.36 36 weeks gestation of pregnancy; Z87.891 Personal history of nicotine dependence

== ENCOUNTER → 2017-11-20 | Outpatient (CLI) | payer OTHER | LOC: LAB.O 08:34 | PROVIDERS: ATTEND Nurse Practitioner Family | DX: Z13.228 Encounter for screening for other metabolic disorders (principal); Z84.0 Family history of diseases of the skin and subcutaneous tissue; Z86.73 Personal history of transient ischemic attack (TIA), and cerebral infarction without residual deficits ==

== ENCOUNTER → 2017-12-11 | Outpatient (CLI) | payer OTHER ==
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
== END ==
LOC: LAB.O 10:01
PROVIDERS: ATTEND Internal Medicine Cardiovascular Disease
DX: R10.11 Right upper quadrant pain (principal); E78.2 Mixed hyperlipidemia

== ENCOUNTER 2018-07-26 08:00 | Emergency (ER) | payer MEDICAID, OTHER ==
[2018-07-26 08:21] VITALS: TEMP 98.3
[2018-07-26] MEDS ORDERED: MORPHINE SULFATE INJ 10 MG/ML VIAL IV ONE (08:32)
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
[2018-07-26] MEDS ORDERED: diphenhydrAMINE HCL 50 MG/ML VIAL ONE (08:38)
[2018-07-26] MEDS ORDERED: diphenhydrAMINE HCL 50 MG/ML VIAL IV ONE (09:40)
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
[2018-07-26] MEDS ORDERED: ORPHENADRINE CITRATE 30 MG/ML AMP IV ONE (10:27)
[2018-07-26 10:30] VITALS: O2SAT 100
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
[2018-07-26 12:06] VITALS: BP 104/56
== END 2018-07-26 12:06 | disposition home or self-care (01) ==
LOC: ER 08:00
DX: S16.1XXA Strain of muscle, fascia and tendon at neck level, initial encounter (principal); S39.011A Strain of muscle, fascia and tendon of abdomen, initial encounter; R51 Headache; R11.2 Nausea with vomiting, unspecified; M54.5 Low back pain; R10.12 Left upper quadrant pain; M25.552 Pain in left hip; I10 Essential (primary) hypertension; K21.9 Gastro-esophageal reflux disease without esophagitis; F32.9 Major depressive disorder, single episode, unspecified; Z87.891 Personal history of nicotine dependence; V49.49XA Driver injured in collision with other motor vehicles in traffic accident, initial encounter; Y92.410 Unspecified street and highway as the place of occurrence of the external cause
CPT/HCPCS: 70450; 71045; 72125; 73030; 74177; 80053; 81001; 82550; 82553; 84484; 84703; 85025; 85610; J1200; J2270; J2360

== ENCOUNTER → 2018-10-06 | Outpatient (CLI) | payer OTHER | LOC: SL 09-09 20:03 | PROVIDERS: ATTEND General Practice | DX: G47.33 Obstructive sleep apnea (adult) (pediatric) (principal) ==

== ENCOUNTER 2018-11-11 15:57 | Emergency (ER) | payer OTHER ==
[2018-11-11 17:25] VITALS: O2SAT 99
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
[2018-11-11 18:09] VITALS: BP 119/70; TEMP 98.7
== END 2018-11-11 18:25 | disposition home or self-care (01) ==
LOC: ER 15:57
DX: O26.852 Spotting complicating pregnancy, second trimester (principal); O99.89 Other specified diseases and conditions complicating pregnancy, childbirth and the puerperium; R07.9 Chest pain, unspecified; R10.2 Pelvic and perineal pain; O10.912 Unspecified pre-existing hypertension complicating pregnancy, second trimester; I10 Essential (primary) hypertension; O99.612 Diseases of the digestive system complicating pregnancy, second trimester; K21.9 Gastro-esophageal reflux disease without esophagitis; O99.112 Other diseases of the blood and blood-forming organs and certain disorders involving the immune mechanism complicating pregnancy, second trimester; M32.19 Other organ or system involvement in systemic lupus erythematosus; M06.9 Rheumatoid arthritis, unspecified; Z3A.27 27 weeks gestation of pregnancy; Z88.5 Allergy status to narcotic agent

== ENCOUNTER → 2019-07-07 | Outpatient (CLI) | payer BC | LOC: YCFC.O 09:39 | PROVIDERS: ATTEND Nurse Practitioner | DX: E16.2 Hypoglycemia, unspecified (principal); R53.83 Other fatigue ==

== ENCOUNTER → 2019-07-24 | Outpatient (CLI) | payer BC ==
--- NOTE | 2019-07-25 10:46 | US ---
US THYROID CLINICAL STATEMENT: RT THYROID NODULE. Palpated a mass. No previous thyroid surgery or therapy. COMPARISON: None TECHNIQUE: Transcutaneous scanning, grayscale and Doppler modes. FINDINGS: Size right thyroid lobe: 4.2 x 1.2 x 1.1 cm Size left thyroid lobe: 4.1 x 1.7 x 1.6 cm Size isthmus: 0.22 cm Estimated total number of nodules greater than or equal to 1 cm: None. Heterogeneous gland with no parenchymal edema or large calcifications. No overlying skin changes. Nodule 1: Size: 0.7 x 0.6 x 0.4 cm Location: Left Lower Composition: solid or almost completely solid: 2 points Echogenicity: hypoechoic: 2 points Shape: wider than tall: 0 points Margins: smooth: 0 points Echogenic foci: none: 0 points ACR Total Points: 4; ACR TI-RADS risk category: TR4 - moderately suspicious nodule. Nodule 2: Size: 0.5 x 0.5 x 0.3 cm Location: Right Lower Composition: spongiform: 0 points Echogenicity: hypoechoic: 2 points Shape: wider than tall: 0 points Margins: smooth: 0 points Echogenic foci: none: 0 points ACR Total Points: 2; ACR TI-RADS risk category: TR2 - nonsuspicious nodule. Nodule 3: Size: 0.5 x 0.3 x 0.4 cm Location: Left Upper Composition: cystic or completely cystic: 0 points Echogenicity: anechoic: 0 points Shape: wider than tall: 0 points Margins: smooth: 0 points Echogenic foci: none: 0 points ACR Total Points: 0; ACR TI-RADS risk category: TR1 - benign nodule Nodule 4: Size: 0.3 x 0.3 x 0.2 cm Location: Right Upper Composition: spongiform: 0 points Echogenicity: hypoechoic: 2 points Shape: wider than tall: 0 points Margins: smooth: 0 points Echogenic foci: none: 0 points ACR Total Points: 2; ACR TI-RADS risk category: TR2 - nonsuspicious nodule. Soft tissue around the thyroid gland showing no dominant solid mass or distinct cyst. As IMPRESSION: 1. Nodule 1: ACR TI-RADS 2017 Category TR4. Recommend: No further follow-up.. Recommendations based upon [employer] recommendations and ACR TI-RADS 2017 guidelines. Please see below*. 2. Nodule 2: ACR TI-RADS 2017 Category TR2. Recommend: No further follow-up. 3. Nodule 3: ACR TI-RADS 2017 Category TR1. Recommend: No further follow-up. 4. Nodule 4: ACR TI-RADS 2017 Category TR2. Recommend: No further follow-up. Soft tissue around the thyroid gland is unremarkable. *ACR TI-RADS 2017 Recommendations for imaging follow-up of nodules: TR1: No FNA or follow up TR2: No FNA or follow up TR3: FNA if >/= 2.5 cm, follow up if 1.5 - 2.4 cm in 1, 3, and 5 years TR4: FNA if >/= 1.5 cm, follow up if 1.0 - 1.4 cm in 1, 2, 3, and 5 years TR5: FNA if >/= 1.0 cm, follow up if 0.5 - 0.9 cm every year for 5 years ACR TI-RADS recommends that no more than two nodules with the highest ACR TI-RADS total point should be biopsied and no more than four nodules should be followed. These recommendations do not apply to patients with increased risk for thyroid cancer or patients with symptomatic thyroid disease. Electronically signed by: Radames Franklin MD 07/25/2019 10:44 AM CDT
== END ==
LOC: US 14:08
PROVIDERS: ATTEND Internal Medicine Endocrinology, Diabetes & Metabolism
DX: E04.1 Nontoxic single thyroid nodule (principal)

== ENCOUNTER → 2019-08-14 | Outpatient (CLI) | payer BC ==
--- NOTE | 2019-08-15 07:14 | RAD ---
3 radiographs left knee Indication: PAIN IN LEFT KNEE Comparison: None. Impression: No acute fracture, malalignment, or advanced osteoarthritis. Small knee effusion. MRI could better evaluate as clinically indicated. Electronically signed by: Bhavesh French MD 08/15/2019 7:12 AM [facility]
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
== END ==
LOC: US 10:51
PROVIDERS: ATTEND Nurse Practitioner
DX: M25.562 Pain in left knee (principal); M79.662 Pain in left lower leg; M25.462 Effusion, left knee

== ENCOUNTER → 2019-09-26 | Outpatient (CLI) | payer OTHER | LOC: LAB.O 12:38 | PROVIDERS: ATTEND Nurse Practitioner | DX: R35.0 Frequency of micturition (principal) ==

== ENCOUNTER → 2019-10-02 | Outpatient (CLI) | payer OTHER ==
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
--- NOTE | 2019-10-02 13:35 | RAD ---
EXAM DESCRIPTION: Pelvis CLINICAL HISTORY: 29 years Female, PAIN IN LEFT HIP COMPARISON: None. Findings: No acute fracture or dislocation. No focal soft tissue swelling. Joint spaces are maintained. Normal bone mineralization. IMPRESSION: No evidence of acute process. Electronically signed by: Ronny Snyder MD 10/02/2019 1:33 PM PROGRAM [facility]
== END ==
LOC: RAD 09:39
PROVIDERS: ATTEND Orthopaedic Surgery
DX: S83.002A Unspecified subluxation of left patella, initial encounter (principal); M25.552 Pain in left hip

== ENCOUNTER → 2019-10-31 | Outpatient (CLI) | payer OTHER | LOC: YCFC.O 11:35 | PROVIDERS: ATTEND Nurse Practitioner | DX: R30.9 Painful micturition, unspecified (principal) ==

== ENCOUNTER → 2020-01-16 | Outpatient (CLI) | payer BC ==
--- NOTE | 2020-01-16 14:07 | US ---
EXAM DESCRIPTION: Venous,Lower Extremity LT CLINICAL HISTORY: 29 years Female, pain LT calf COMPARISON: None. TECHNIQUE: Multiple grayscale, color flow, and spectral Doppler images of the left lower extremity veins obtained. FINDINGS: Patent without thrombosis through the visualized lower extremity veins. Soft tissues unremarkable. IMPRESSION: 1. Negative ultrasound for deep vein thrombosis. Electronically signed by: Zack Cruz MD 01/16/2020 2:05 PM CDT
== END ==
LOC: US 13:28
PROVIDERS: ATTEND Nurse Practitioner
DX: M79.662 Pain in left lower leg (principal)

== ENCOUNTER 2020-02-11 | Emergency (ER) | payer BC ==
--- NOTE | 2020-02-11 23:31 | ED.PDOC ---
History of Present Illness - General Time Seen by Provider: 02/11/20 23:26 Source: patient Exam Limitations: no limitations - History of Present Illness Initial Comments: 29 y/o female one day post op vaginal hysterectomy was rising up out of a recliner when her araya tube caught on the chair and was firmly pulled. She had some sharp pain to one side that wasn't there before. She presents to make sure the catheter is not dislodged. no vaginal bleeding or blood in urine Timing/Duration: just prior to arrival Quality: moderate Onset Location: urethral Radiation: suprapubic Activites at Onset: other - rising from a chair Prior abdominal problems: recent trauma - recent surgery Associated Symptoms: other - normal post op pain Allergies/Adverse Reactions: Allergies Morphine Adverse Reaction (Verified 07/26/18 10:58) bleach Adverse Reaction (Uncoded 06/26/17 07:21) Cough Home Medications: Ambulatory Orders Plaquenil 07/26/18 Hydrocodone-Acetaminophen [[place] 5-325 mg] 5 PRN 02/11/20 Ibuprofen [Motrin] 600 mg PO 02/11/20 Metoprolol Tartrate 25 mg PO DAILY 02/11/20 Review of Systems - Review of Systems Constitutional: States: no symptoms reported EENTM: States: no symptoms reported Respiratory: States: no symptoms reported Cardiology: States: no symptoms reported Gastrointestinal/Abdominal: States: no symptoms reported Genitourinary: States: pain, other - post op indwelling araya catheter causing pain Musculoskeletal: States: no symptoms reported Past Medical History (General) - Patient Medical History Hx Seizures: No Hx Stroke: No Hx Dementia: No Hx Asthma: No Hx of COPD: No Hx Cardiac Disorders: Yes - Tachycardia Hx Congestive Heart Failure: No Hx Pacemaker: No Hx Hypertension: Yes Hx Thyroid Disease: No Hx Diabetes: No Hx Gastroesophageal Reflux: Yes Hx Renal Disease: No Hx Cancer: No Hx of HIV: No Hx Hepatitis C: No Hx MRSA: No - Vaccination History Hx Tetanus, Diphtheria Vaccination: No Hx Influenza Vaccination: Yes Hx Pneumococcal Vaccination: No - Social History Hx Tobacco Use: Yes Hx Chewing Tobacco Use: No Hx Alcohol Use: No Hx Substance Use: No Hx Substance Use Treatment: No Hx Depression: Yes Hx Physical Abuse: No Hx Emotional Abuse: No Hx Suspected Abuse: No - Female History Hx Last Menstrual Period: 06/07/16 Patient : Yes - 27 weeks Expected Date of Delivery:: 04/21/19 Hx Gestational Age: 11 Family Medical History - Family History Mother Family History: Unknown Living Status: Still Living Hx Family Asthma: Yes - dad Hx Family Hypertension: Yes - Mother, Father Hx Cardiac Disease: Yes - Father Hx Family Diabetes: Yes - Father Hx Family Cancer: Yes - breast-mom Hx Family;Other: Lupus, MS Physical Exam - Physical Exam General Appearance: Alert, No apparent distress Eyes, Ears, Nose, Throat Exam: PERRL/EOMI, normal ENT inspection Neck: full range of motion, supple Pelvic Exam: other - observed urinary catheter entering meatus with no tauma or blood noted. Clear yellow urine in tubing and bag Departure - Departure Clinical Impression: Araya catheter problem Qualifiers: Encounter type: subsequent encounter Qualified Code(s): T83.9XXD - Unspecified complication of genitourinary prosthetic device, implant and graft, subsequent encounter Disposition: Discharge to Home or Self Care Condition: Good Departure Forms: ED Discharge - Pt. Copy, Patient Portal Self Enrollment Instructions: How to Care for Your Araya Catheter, Female Referrals: Su Wells FNP [Primary Care Provider] - 1-2 Weeks Home Medications: Ambulatory Orders Plaquenil 07/26/18 Hydrocodone-Acetaminophen [[place] 5-325 mg] 5 PRN 02/11/20 Ibuprofen [Motrin] 600 mg PO 02/11/20 Metoprolol Tartrate 25 mg PO DAILY 02/11/20
== END 2020-02-11 23:39 | disposition home or self-care (01) ==

== ENCOUNTER → 2020-06-04 | Outpatient (CLI) | payer BC ==
--- NOTE | 2020-06-06 09:05 | MRI ---
EXAM DESCRIPTION: MRI left knee CLINICAL HISTORY: Medial knee pain. Evaluate for meniscal tear COMPARISON: None. TECHNIQUE: Multiplanar, multisequence MR images of the left knee FINDINGS: No medial meniscal tear. Medial femorotibial cartilage intact. No lateral meniscal tear. Lateral femorotibial cartilage intact Normal patellofemoral cartilage ACL, PCL, MCL and fibular collateral ligaments are normal Biceps femoris, popliteus and iliotibial band tendons are normal. Patellar and quadriceps tendons and tendons of the posterior medial knee are intact Normal marrow signal. Small joint effusion. No synovitis or intra-articular loose body IMPRESSION: Normal MRI left knee. No meniscal tear Electronically signed by: Justin Ravi MD 06/06/2020 9:04 AM CDT
== END ==
LOC: MRI 08:59
PROVIDERS: ATTEND Orthopaedic Surgery
DX: M25.562 Pain in left knee (principal)

== ENCOUNTER → 2020-06-29 | Outpatient (CLI) | payer BC | LOC: YCFC.O 14:13 | PROVIDERS: ATTEND Family Medicine | DX: R63.8 Other symptoms and signs concerning food and fluid intake (principal) ==

== ENCOUNTER → 2020-07-19 | Outpatient (CLI) | payer BC ==
--- NOTE | 2020-07-19 10:33 | US ---
EXAM DESCRIPTION: Gall Bladder: ULTRASOUND. CLINICAL HISTORY: ABDOMINAL PAIN COMPARISON: None. TECHNIQUE: Transabdominal scanning: Ruffin-scale and Doppler modes. FINDINGS: Gallbladder: normal size, shape, echogenicity; no intraluminal stones or sludge. No fluid around the gallbladder. No wall thickening. 2.3 mm Non-tender with transducer pressure. Common bile duct: caliber 3.2 mm within normal limits. Liver: Increased echogenicity; contour liver capsule smooth where seen. No fluid around the liver. Intrahepatic biliary ducts normal caliber. Doppler hepatopedal flow portal vein.. Normal caliber portal vein: 10.5 mm. Long axis right lobe 15.6 cm. Pancreas: normal size Normal echogenicity. Duct not seen. Aorta: 1.8 cm caliber normal. Right kidney: long axis is 10.3 cm; volume 91.8 mL. Normal cortical thickness and echogenicity. No echogenic stones; no hydronephrosis. IMPRESSION: 1. Heterogeneous fatty liver upper normal limits in size. Physiologic ducts and vascularity. Smooth capsule with no ascites. Pancreas is negative. Normal caliber of the proximal abdominal aorta. 2. Gallbladder and common bile duct unremarkable. Right kidney negative findings. Electronically signed by: Radames Franklin MD 07/19/2020 10:31 AM CDT
== END ==
LOC: US 08:00
PROVIDERS: ATTEND Surgery
DX: K76.0 Fatty (change of) liver, not elsewhere classified (principal); R10.9 Unspecified abdominal pain